=== PATIENT | female | born 1940 | race Caucasian/White ===

== ENCOUNTER 2018-12-17 12:18 | Outpatient (CLI) | payer MEDICARE ==
[2018-12-17] MEDS ORDERED: iohexol 300mg/ml 100ml inj. ONE (12:41)
== END 2018-12-17 23:59 | disposition home or self-care (01) ==
LOC: 64 CT 12:18
DX: R91.1 Solitary pulmonary nodule (principal); R91.8 Other nonspecific abnormal finding of lung field; K59.00 Constipation, unspecified; Z90.89 Acquired absence of other organs
CPT/HCPCS: 71270; 74178; Q9967